=== PATIENT | male | born 1995 | race Caucasian/White ===

== ENCOUNTER 2016-07-07 01:56 | Emergency (ER) | payer OTHER, MEDICAID ==
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
[2016-07-07 02:11] VITALS: BP 169/128; PULSE 102; RESP 19; TEMP 98.4; O2SAT 98
== END 2016-07-07 02:08 | disposition home or self-care (01) ==
LOC: EDUNIT#
DX: F91.8 Other conduct disorders (principal); Z87.891 Personal history of nicotine dependence

== ENCOUNTER 2016-07-07 18:27 | Emergency (ER) | payer OTHER, MEDICAID ==
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
[2016-07-07] MEDS ORDERED: METHOCARBAMOL 750 MG TAB PO ONE (19:40)
[2016-07-07 20:16] VITALS: BP 137/88; PULSE 93; RESP 14; TEMP 98.6; O2SAT 93
== END 2016-07-07 20:15 | disposition home or self-care (01) ==
LOC: EDUNIT#
DX: S39.92XA Unspecified injury of lower back, initial encounter (principal); Y08.89XA Assault by other specified means, initial encounter; Y92.89 Other specified places as the place of occurrence of the external cause; Y93.55 Activity, bike riding

== ENCOUNTER 2016-09-09 12:30 | Emergency (ER) | payer OTHER, MEDICAID ==
[2016-09-09 12:36] VITALS: BP 117/69; PULSE 101; RESP 16; TEMP 98.1; O2SAT 93
--- NOTE | 2016-09-09 12:49 | EDPHY ---
H & P Stated Complaint: fell on steps last night, thinks he may have broken right heel Time Seen by Provider: 09/09/16 12:48 - Personal History Current Tetanus Diphtheria and Acellular Pertussis (TDAP): Yes Tetanus Vaccine Date: within 10 years - Medical/Surgical History Hx Asthma: Yes Hx Chronic Respiratory Disease: No Hx Diabetes: No Hx Cardiac Disease: No Hx Renal Disease: No Hx Cirrhosis: No Hx Alcoholism: No Hx HIV/AIDS: No Hx Splenectomy or Spleen Trauma: No Other PMH: anxiety, back injury - Social History Smoking Status: Former smoker Constitutional: Initial Vital Signs Temperature (C) 36.7 C 09/09/16 12:31 Heart Rate 101 H 09/09/16 12:31 Respiratory Rate 16 09/09/16 12:31 Blood Pressure 117/69 09/09/16 12:31 O2 Sat (%) 93 09/09/16 12:31 O2 Delivery Mode Room Air Allergies/Adverse Reactions: diazepam [From Valium] Allergy (Verified 02/14/16 12:37) Home Medications: Medication Instructions Recorded Cyclobenzaprine [Flexeril] 10 mg PO TIDPRN PRN #12 tab 02/13/16 KLONOPIN 02/13/16 Meloxicam 02/13/16 traZODone 02/13/16 Methocarbamol [Robaxin 750 mg (*)] 750 mg PO QID PRN #15 tab 07/07/16 HYDROcodone/APAP 10/325 [[place] 1 - 2 each PO Q4-6PRN PRN #20 tab 09/09/16 10/325] Medical Decision Making ED Course/Re-evaluation: CHIEF COMPLAINT: Right foot pain HISTORY OF PRESENT ILLNESS: The patient is a 21 y/o male complaining of right foot pain secondary to a fall last night. He describes falling onto steps "flat- footed" and developing immediate pain in his right heel. He denies other injuries or symptoms. No weakness or paresthesias. History of chronic back pain. REVIEW OF SYSTEMS: A 10 point review of systems was performed and is negative with the exception of the elements mentioned in the history of present illness. PHYSICAL EXAM: HR, BP, O2 Sat, RR. Temp noted General Appearance: Alert, well hydrated, appropriate, and non-toxic appearing. Head: Atraumatic without scalp tenderness or obvious injury Neck: Supple, nontender. Respiratory: Normal respiratory effort. Cardiovascular: Good cap refill in all extremities. Musculoskeletal: Normal active ROM of all extremities, atraumatic. No midline back tenderness. Mild tenderness to right heel. Neurological: Alert, appropriate, and interactive. Normal movement and sensation in right foot. Skin: No rashes, good turgor, no nodules on palpation. No abrasions, lacerations, ecchymosis. Past medical history: Chronic back pain Past surgical history: Denies Family history: Noncontributory Social history: Smoker, friend at bedside DIAGNOSTICS/PROCEDURES/CRITICAL CARE TIME: Study: Right foot Indication: Pain, trauma Results: X-ray of the foot was obtained. The results of the study are negative for fracture. The study was read by the radiologist, Dr. Baeza. I viewed the images myself on the PACS system. DIFFERENTIAL DIAGNOSIS: The differential diagnosis for the patient's trauma included but was not limited to foot sprain, foot fracture, and contusion. MEDICAL DECISION MAKING: This is a healthy 21 y/o male presenting with mild right heel pain secondary to landing hard on his foot yesterday. He is neurovascularly intact with no visible trauma on exam. An x-ray reveals no evidence of Lisfranc fracture or midfoot or forefoot fracture. He will be discharged home in a post op shoe with referral to podiatry if needed. He understands he can use his Tylenol or ibuprofen as needed for pain. He is comfortable with this plan. Return precautions given. Departure - Departure Disposition: Home, Routine, Self-Care Clinical Impression: Right foot sprain Qualifiers: Encounter type: initial encounter Qualified Code(s): S93.601A - Unspecified sprain of right foot, initial encounter Condition: Good Instructions: Foot Sprain (ED) Additional Instructions: 1. Use Tylenol or ibuprofen as directed on the packaging if needed for pain for the next 2-3 days. 2. Apply ice intermittently to sore areas. 3. Wear postop shoe for comfort. 4. Follow up with patient relations liaison if symptoms have not improved over the next week. Referrals: [facility] [Other] - As per Instructions Laurie Reddy DPM [Doctor of Podiatric Medicine] - As per Instructions Prescriptions: HYDROcodone/APAP 10/325 [[place] 10/325] 1 - 2 each PO Q4-6PRN PRN #20 tab PRN Reason: Pain, Moderate
== END 2016-09-09 13:31 | disposition home or self-care (01) ==
DX: S93.601A Unspecified sprain of right foot, initial encounter (principal); J45.909 Unspecified asthma, uncomplicated; Z87.891 Personal history of nicotine dependence; W10.9XXA Fall (on) (from) unspecified stairs and steps, initial encounter
CPT/HCPCS: 73630; 99283; L3260